=== PATIENT | female | born 1980 | race Caucasian/White ===

== ENCOUNTER 2017-06-15 10:35 | Day surgery (SDC) | payer OTHER ==
[2017-06-14 14:33] LABS: BASOPHILS % 0.4 % (0.0-2.0); EOSINOPHILS # 0.2 10^3/ul (0.0-0.5); EOSINOPHILS % 1.8 % (0.0-7.0); HEMATOCRIT 39.5 % (37.0-47.0); HEMOGLOBIN 13.1 g/dl (12.0-16.0); LYMPHOCYTES # 2.8 10^3/ul (0.8-2.9); LYMPHOCYTES % 29.9 % (15.0-51.0); MEAN CORPUSCULAR HGB CONC 33.2 g/dl (32.0-37.0); MEAN CORPUSCULAR VOLUME 90.6 fl (82.0-101.0); MEAN PLATELET VOLUME 9.5 fl (7.4-10.4); MONOCYTE # 0.7 10^3/ul (0.3-0.9); MONOCYTES % 7.6 % (0.0-11.0); NEUTROPHILS % 60.2 % (39.0-77.0); PLATELET COUNT 332 10^3/UL (140-415); RED BLOOD COUNT 4.36 10^6/ul (4.20-5.40); RED CELL DISTRIBUTION WIDTH 12.6 % (11.5-14.5); WHITE BLOOD COUNT 9.3 10^3/ul (4.8-10.8)
[2017-06-14 14:45] LABS: ALBUMIN 4.2 g/dl (3.3-4.9); ALBUMIN/GLOBULIN RATIO 1.1; BILIRUBIN,INDIRECT 0.7 mg/dl (0-1.1); BILIRUBIN,TOTAL 0.7 mg/dl (0.2-1.3); INR 0.91; PROTIME 12.3 Sec (12.2-14.2)
[2017-06-14 14:46] LABS: PARTIAL THROMBOPLASTIN TIME 26.7 Sec (25.0-35.0)
[2017-06-14 14:55] LABS: ADD UMIC YES; UR ASCORBIC ACID NEGATIVE (NEGATIVE); UR BACTERIA FEW /HPF (NONE SEEN); UR BILIRUBIN (Dip) NEGATIVE (NEGATIVE); UR BLOOD (Dip) 1+ mg/dL (NEGATIVE); UR CLARITY CLOUDY (CLEAR); UR COLOR YELLOW (YELLOW); UR GLUCOSE (Dip) NEGATIVE (NEGATIVE); UR KETONES (Dip) NEGATIVE (NEGATIVE); UR LEUKOCYTE ESTERASE (Dip) NEGATIVE Leu/ul (NEGATIVE); UR MUCUS FEW /HPF (NONE SEEN); UR NITRITE (Dip) NEGATIVE (NEGATIVE); UR RBC 7 /HPF (0-5); UR SQUAMOUS EPITHELIAL CELL MANY /HPF (FEW); UR TOTAL PROTEIN (Dip) NEGATIVE (NEGATIVE); UR UROBILINOGEN (Dip) NEGATIVE (NEGATIVE)
[2017-06-14 15:01] LABS: CALCIUM 9.3 mg/dl (8.4-10.2); CREATININE 0.8 mg/dl (0.44-1.00)
--- NOTE | 2017-06-14 21:09 | PREOPHP ---
DATE OF ADMISSION: 06/15/2017 She is to be admitted tomorrow, June 15, 2017 for a laparoscopic tubal ligation, possible laparotomy. HISTORY OF PRESENT ILLNESS: This is a 37-year-old female, 4, para 4, who has had 4 sections for the of her children, the last which was delivered by 5 months ago. She has requested sterilization of the patient's multiparity. She is brought in for a laparoscopic bilateral tubal ligation under general anesthesia, with possible laparotomy, if necessary. The alternatives, benefits, risks and possible complications of this procedure, as well as 1 percent failure rate of the tubal ligation was discussed with the patient in great detail in the office. All her questions were answered to her satisfaction, including the possibility of the need to resort to a laparotomy since she already had 4 sections, and this could be a difficult laparoscopic case. She signed the appropriate surgical informed consents. PAST MEDICAL HISTORY: The patient denies any medical problems, including diabetes, cardiac disease, liver disease, renal disease, thyroid disease, neurological problems. ALLERGIES: SHE DENIES ANY ALLERGIES. MEDICATIONS: She takes only vitamins that she continues after the of her last child. REVIEW OF SYSTEMS: A 12-point review of systems is noncontributory. FAMILY HISTORY: Noncontributory. PHYSICAL EXAMINATION: GENERAL APPEARANCE: Well developed and nourished, in no distress. Alert and oriented x3, with a height of 5 feet, and weight is 175 pounds. BMI is 34. VITAL SIGNS: Showed the temperature to be 98, blood pressure is 112/71, respirations are 16 per minute, pulse is 80 per minute and regular. HEENT: Within normal limits. Pupils are PERRLA. NECK: Supple. Thyroid nonpalpable. There is no lymphadenopathy. BREASTS: Show no masses or lumps. LUNGS: Are clear to percussion and auscultation. HEART: Normal sinus rhythm, without a murmur. ABDOMEN: Soft. There are no megalies or hernias. There is a well-healed Pfannenstiel incision. PELVIC: Normal external genitalia. Uterus normal, in the midline. There are no adnexal masses present. EXTREMITIES: Within normal limits. NEUROLOGIC: Also normal. IMPRESSION: Multiparity. Patient desires sterilization. Dictated By: Jelani Diego MD /fnbipin/sylvester /Document#: [id number]
[2017-06-15] VITALS (12 sets, daily range): BP systolic 113–140; BP diastolic 56–83; PULSE 56–96; RESP 12–20; Ht 152.4 cm; Wt 81.0 kg
[~2017-06-15] VITALS: Ht 152.4 cm; Wt 81.0 kg
[2017-06-15] MEDS ORDERED: ALBU18HF INHALATION (10:54)
[2017-06-15] MEDS ORDERED: ONDANSETRON 4 MG INJ IV PRN ×2 (12:00→14:30)
[2017-06-15] MEDS ORDERED: METOCLOPRAMIDE 10 MG INJ IV PRN (12:00)
[2017-06-15] MEDS ORDERED: FENTAnyl 50 MCG/ML VIAL IV PRN (12:00)
[2017-06-15] MEDS ORDERED: DIPHENHYDRAMINE 50 MG INJ IV PRN (12:00)
[2017-06-15] MEDS ORDERED: HYDROmorphONE (0.2 MG/ML) 10ML SYG IV PRN ×3 (12:00)
[2017-06-15] MEDS ORDERED: MEPERIDINE 25 MG INJ IV PRN (12:00)
[2017-06-15] MEDS ORDERED: ALBUTEROL 0.083% (NEB) 2.5 MG/3 ML AMP HHN PRN (12:00)
[2017-06-15] MEDS ORDERED: OXYCODONE/ACETAMINOPHEN (5/325) TAB PO PRN ×2 (12:00→14:30)
[2017-06-15] MEDS ORDERED: BUPIVACAINE 0.5%/EPI (SDV) 10 ML INJ ONE (12:08)
[2017-06-15] MEDS ORDERED: FENTAnyl 50 MCG/ML VIAL ONE (12:55)
[2017-06-15] MEDS ORDERED: SUGAMMADEX SODIUM 200 MG/2 ML VIAL IV ONE (13:55)
[2017-06-15] MEDS ORDERED: ROCURONIUM 50 MG INJ ONE (13:55)
[2017-06-15] MEDS ORDERED: ROPIVACAINE 0.5 % 30 ML VIAL ONE (13:55)
[2017-06-15] MEDS ORDERED: CEFAZOLIN 1 GM INJ ONE (13:55)
[2017-06-15] MEDS ORDERED: LIDOCAINE 2% (SDV) 5 ML INJ ONE (13:55)
[2017-06-15] MEDS ORDERED: SUCCINYLCHOLINE CHLORIDE 100 MG/5 ML SYG IV ONE (13:55)
[2017-06-15] MEDS ORDERED: PROPOFOL 20 ML ONE (13:55)
[2017-06-15] MEDS ORDERED: LACTATED RINGER'S 1,000 ML IV SCH (14:08)
--- NOTE | 2017-06-15 14:18 | OPR ---
Operative Report Planned Procedure Procedure date Jun 15, 2017 Procedure(s) Laparoscopic bilateral tubal ligation.Lysis of adhesions. Performed by Anesthesiologist: SONDRA HARRY Pre-procedure diagnosis Multiparity Anesthesia Type: general Procedure Description Laparoscopic bilateral tubal ligation with lysis of adhesions. Post-Procedure Post-procedure diagnosis Same Estimated blood loss: minimal Specimen(s): no Grafts/Implants: no Complication(s): no Physician Certification I, the undersigned physician, hereby certify that I have discussed the procedure described in this consent form with this patient (or the patient's legal access service representative), including: * The risk and benefits of the procedure; * Any adverse reactions that may reasonably be expected to occur; * Any alternative efficacious methods of treatment which may be medically viable ; * The potential problems that may occur during recuperation; * Potential for blood transfusion and associated risks/benefits; and * Any research or economic interest I may have regarding this treatment. I further certify that the patient/legally responsible person was encouraged to ask question and that all questions were answered. TYRONE WALL MD Jun 15, 2017 14:18
[2017-06-15] MEDS ORDERED: ACETAMINOPHEN 325 MG TAB PO PRN (14:30)
[2017-06-15] MEDS ORDERED: IBUPROFEN 600 MG TAB PO PRN (14:30)
[2017-06-15] MEDS ORDERED: morphine 2 MG INJ IV PRN (14:30)
[2017-06-15] MEDS: FENTAnyl 50 MCG/ML VIAL IV PRN ×2 (14:43→14:53)
--- NOTE | 2017-06-15 16:01 | OPR ---
DATE OF OPERATION: 06/15/2017 ANESTHESIOLOGIST: Dr. Garza. PREOPERATIVE DIAGNOSIS: 1. Multiparity. 2. Previous section x4. POSTOPERATIVE DIAGNOSIS: 1. Multiparity. 2. Previous section x4. OPERATION PERFORMED: Laparoscopic lysis of adhesions and bilateral tubal ligation. SURGEON: Jelani Diego MD ANESTHESIA: General and regional by Dr. Garza. ESTIMATED BLOOD LOSS: Minimal. SPECIMENS: None. COMPLICATIONS: None. OPERATIVE PROCEDURE AND FINDINGS: With the patient under general anesthesia, lying on the table in the dorsal lithotomy position. Her lower abdomen, perineum and vagina were prepped with Betadine, and the abdomen itself with ChloraPrep, and after 3 minutes, she was then addressed in the usual sterile fashion. A red Trevin catheter was utilized to empty the bladder and remove right out. A small 5-mm incision was done at the level of the umbilicus, and through this a Veress needle was inserted, and the tip of the needle was ascertained to be intraperitoneal by the hanging drop saline technique. It was then connected to a CO2 insufflator. Good pneumoperitoneum was obtained. The needle was removed, and a 5-mm trocar was passed in while we were tenting up the anterior abdominal wall. Through this port, the 5-mm laparoscopic with camera was inserted. There were adhesions of the omentum to the anterior abdominal wall. The patient was placed in Trendelenburg position. It appeared that the adhesions were on the right side of the pelvis. The left side was entered in the left lower quadrant of the abdomen under direct vision and another 5-mm trocar. Through this port, the Gyrus device was inserted. The adhesions were then cauterized and dissected free on the right too. Both ovaries could be seen also, as well as the cul-de-sac of [place]. Then the tubal ligation was done in the usual way, burning the tube [id number] for 1.5 cm on each side. Good hemostasis was obtained. All the instruments were removed from the patient's abdomen. Pictures were taken for documentation. The incisions were infiltrated with 0.5 percent Marcaine with epinephrine, a total of 20 cc and then closed with 3-0 Monocryl. Band-Aids were applied. The patient withstood the procedure well and was taken to the recovery room with all vital signs stable. EBL was minimal. Needle, sponge, and instrument count at the end of the procedure was correct twice. Dictated By: Jelani Diego MD /agata/sylvester /Document#: [id number]
== END 2017-06-15 16:18 | disposition home or self-care (01) ==
LOC: SDS 10:35
PROVIDERS: ATTEND Specialist
DX: Z30.2 Encounter for sterilization (principal); J45.909 Unspecified asthma, uncomplicated
CPT/HCPCS: 58670; 80053; 81001; 84703; 85025; 85610; 85730; 86850; 86900; 86901; J0690; J2175; J2405; J3010; J7999; J2795